=== PATIENT | female | born 1965 | race African-American/Black ===

== ENCOUNTER 2017-09-01 06:15 | Emergency (ER) | payer OTHER ==
[~2017-09-01 06:15] MED LIST: CLON1000 PO; DULO40CA2 PO; FAMO-79 PO; GABA-826 PO; OXYC-307 PO; OXYC5TAB2 PO; PRED20TA PO
[2017-09-01 06:16] VITALS: BP 155/86
[2017-09-01] MEDS ORDERED: KETOROLAC 30 MG/1 ML IM ONE (07:00)
[2017-09-01] MEDS ORDERED: KETOROLAC 30 MG/1 ML ONE (07:30)
== END 2017-09-01 08:27 | disposition home or self-care (01) ==
LOC: ED 07:39
DX: G89.29 Other chronic pain (principal); M25.561 Pain in right knee
CPT/HCPCS: 73564; 93971; 96372; 99284; J1885

== ENCOUNTER 2017-09-19 09:07 | Emergency (ER) | payer OTHER ==
[~2017-09-19] VITALS: Ht 167.6 cm; Wt 72.0 kg
[2017-09-19 09:10] VITALS: BP 136/86
== END 2017-09-19 09:50 | disposition home or self-care (01) ==
LOC: ED 09:38
DX: L53.8 Other specified erythematous conditions (principal)
CPT/HCPCS: 99283

== ENCOUNTER 2017-09-20 03:15 | Emergency (ER) | payer OTHER ==
[~2017-09-20] VITALS: Ht 170.2 cm; Wt 86.0 kg
[2017-09-20 03:16] VITALS: BP 121/80
[2017-09-20] MEDS ORDERED: SULFAMETH./TRIMETHOPRIM DS 800MG/160MG TABLET ONE (04:15)
[2017-09-20] MEDS ORDERED: CEPHALEXIN 500 MG CAPSULE ONE (04:16)
[2017-09-20] MEDS ORDERED: CEPHALEXIN 500 MG CAPSULE PO ONE (04:30)
[2017-09-20] MEDS ORDERED: SULFAMETH./TRIMETHOPRIM DS 800MG/160MG TABLET PO ONE (04:30)
== END 2017-09-20 05:02 | disposition home or self-care (01) ==
LOC: ED 04:17
DX: B02.9 Zoster without complications (principal); L03.312 Cellulitis of back [any part except buttock and flank]; L03.114 Cellulitis of left upper limb
CPT/HCPCS: 93005; 99283

== ENCOUNTER → 2017-11-24 | Outpatient (CLI) | payer OTHER | END | disposition home or self-care (01) | LOC: CFH 07:52 → EDSTATUS 08:00 | PROVIDERS: ATTEND Internal Medicine Cardiovascular Disease | DX: R06.00 Dyspnea, unspecified (principal); R07.9 Chest pain, unspecified; I10 Essential (primary) hypertension; F17.210 Nicotine dependence, cigarettes, uncomplicated | CPT/HCPCS: 93306 ==

== ENCOUNTER 2018-01-30 10:26 | Emergency (ER) | payer OTHER ==
[~2018-01-30] VITALS: Ht 167.6 cm; Wt 79.0 kg
[2018-01-30 10:30] VITALS: BP 148/87
[2018-01-30] MEDS ORDERED: HYDROcodone/APAP 5/325 TABLET PO ONE (11:00)
[2018-01-30] MEDS ORDERED: HYDROcodone/APAP 5/325 TABLET ONE (11:01)
[2018-01-30] MEDS ORDERED: OXYcodone/APAP 10/325MG TABLET PO ONE (11:30)
[2018-01-30] MEDS ORDERED: OXYcodone/APAP 10/325MG TABLET ONE (11:39)
== END 2018-01-30 12:21 | disposition home or self-care (01) ==
LOC: ED 12:02
DX: S52.571A Other intraarticular fracture of lower end of right radius, initial encounter for closed fracture (principal); X50.1XXA Overexertion from prolonged static or awkward postures, initial encounter; Y93.89 Activity, other specified; Y99.8 Other external cause status; Y92.009 Unspecified place in unspecified non-institutional (private) residence as the place of occurrence of the external cause
CPT/HCPCS: 29125; 99283

== ENCOUNTER → 2018-01-31 | Outpatient (CLI) | payer OTHER | END | disposition home or self-care (01) | LOC: RAD 17:28 | PROVIDERS: ATTEND Physician Assistant Surgical | DX: S52.514A Nondisplaced fracture of right radial styloid process, initial encounter for closed fracture (principal); S52.501A Unspecified fracture of the lower end of right radius, initial encounter for closed fracture; X58.XXXA Exposure to other specified factors, initial encounter; Y93.89 Activity, other specified; Y92.89 Other specified places as the place of occurrence of the external cause; Y99.8 Other external cause status ==

== ENCOUNTER 2018-02-26 11:17 | Day surgery (SDC) | payer BC, OTHER ==
[2018-02-23 12:46] VITALS: BP 146/89
[~2018-02-26] VITALS: Ht 167.6 cm; Wt 79.8 kg
[~2018-02-26 11:17] MED LIST changes: +CLON0.1T22 PO; +GABA800T2 PO
[2018-02-26] MEDS ORDERED: OxyconTIN ER 20 MG TAB.ER PO ONE (12:30)
[2018-02-26] MEDS ORDERED: GABAPENTIN 300 MG CAPSULE PO ONE (12:30)
[2018-02-26] MEDS ORDERED: DIAZEPAM 5 MG TABLET PO ONE (12:30)
[2018-02-26] MEDS ORDERED: ONDANSETRON ODT 8 MG PO ONE (12:30)
[2018-02-26] MEDS ORDERED: ACETAMINOPHEN 500 MG TABLET PO ONE (12:30)
[2018-02-26] MEDS ORDERED: LACTATED RINGERS 1,000 ML IV SCH (12:39)
[2018-02-26] MEDS ORDERED: BUPIVACAINE/PF-EPI 0.5% 1:200K ONE (12:49)
[2018-02-26] MEDS ORDERED: BACITRACIN 50,000 UNIT ONE (12:49)
[2018-02-26] MEDS ORDERED: MIDAZOLAM 1 MG/ML, 2ML ONE (13:29)
[2018-02-26] MEDS ORDERED: FENTANYL PF 100 MCG/2ML ONE (13:29)
[2018-02-26] MEDS ORDERED: BALANCED SALT OPHTH IRRIG SOLN 18ML ONE (13:38)
[2018-02-26] MEDS ORDERED: CEFAZOLIN 1,000 MG ONE (13:51)
[2018-02-26] MEDS ORDERED: DEXAMETHASONE 4 MG/ML, 1ML ONE ×3 (13:58→14:30)
[2018-02-26] MEDS ORDERED: HYDROmorphone 2 MG/ML, 1ML IVPush PRN (14:30)
[2018-02-26] MEDS ORDERED: PROPOFOL 10 MG/ML, 20ML ONE (14:30)
[2018-02-26] MEDS ORDERED: MEPERIDINE/PF 25MG/0.5ML IVPush PRN (14:30)
[2018-02-26] MEDS ORDERED: LIDOCAINE-MPF 2% ,5ML ONE (14:30)
[2018-02-26] MEDS ORDERED: OXYcodone 5 MG/5 ML ORAL.SOL UDC PO PRN (14:30)
[2018-02-26] MEDS ORDERED: hydrALAzine 20 MG/ML, 1ML IV PRN (14:30)
[2018-02-26] MEDS ORDERED: LABETALOL 5MG/ML, 20ML IV PRN (14:30)
[2018-02-26] MEDS ORDERED: ONDANSETRON 2MG/ML, 2ML ONE (14:30)
[2018-02-26] MEDS ORDERED: PROMETHAZINE 25 MG/ML, 1ML IV PRN (14:30)
[2018-02-26] MEDS ORDERED: HALOPERIDOL 5 MG/ML IV PRN (14:30)
[2018-02-26] MEDS ORDERED: FENTANYL PF 100 MCG/2ML IV PRN (14:30)
[2018-02-26] MEDS ORDERED: ROPIvacaine/PF 0.5%, 30 ML ONE (14:38)
== END 2018-02-26 18:10 | disposition home or self-care (01) ==
LOC: OUT 11:17
PROVIDERS: ATTEND Orthopaedic Surgery
DX: S52.571A Other intraarticular fracture of lower end of right radius, initial encounter for closed fracture (principal); G56.01 Carpal tunnel syndrome, right upper limb; W19.XXXA Unspecified fall, initial encounter; Y93.89 Activity, other specified; Y92.89 Other specified places as the place of occurrence of the external cause; Y99.8 Other external cause status; D64.9 Anemia, unspecified; I10 Essential (primary) hypertension; F17.210 Nicotine dependence, cigarettes, uncomplicated; G89.29 Other chronic pain; Z91.018 Allergy to other foods
CPT/HCPCS: 25609; 64415; 64721; 73100; C1713; J0690; J1100; J2405; J2704; J2795; J3010; J3490; J7120; Q0162; J2250

== ENCOUNTER → 2018-03-23 | Outpatient (CLI) | payer OTHER ==
[~2018-03-23] MED LIST changes: +REGADENOSON 0.4 MG/5 ML SYRINGE ONE
== END | disposition home or self-care (01) ==
LOC: CFH 08:02
PROVIDERS: ATTEND Internal Medicine Cardiovascular Disease
DX: R07.89 Other chest pain (principal); R55 Syncope and collapse
CPT/HCPCS: 78452; 93017; A9502; J2785

== ENCOUNTER 2018-04-06 22:54 | Emergency (ER) | payer OTHER ==
[~2018-04-06] VITALS: Ht 172.7 cm; Wt 89.6 kg
[~2018-04-06 22:54] MED LIST changes: -GABA800T2 PO; +GABA800T5 PO; -REGADENOSON 0.4 MG/5 ML SYRINGE ONE
--- NOTE | 2018-04-06 23:20 | NUR ---
PT PRESENTS TO ED WITH BILATERAL LEXT EDEMA, 3+ PITTING EDEMA, FAMILY AT BEDSIDE, SIDERAILS UP X2, CALL LIGHT WITHIN REACH.
--- NOTE | 2018-04-06 23:21 | NUR ---
PT TO ULTRASOUND
[2018-04-06 23:27] LABS: BASOPHILS # (AUTO) 0.03 x10^3/uL (0-0.1); BASOPHILS % (AUTO) 1 % (0-1); EOSINOPHILS # (AUTO) 0.22 x10^3/uL (0-0.4); EOSINOPHILS % (AUTO) 4 % (1-7); LYMPHOCYTES # (AUTO) 1.78 x10^3/uL (1-3.4); LYMPHOCYTES % (AUTO) 34 % (22-44); MD NO; MEAN CORPUSCULAR HEMOGLOBIN 27.5 pg (27.0-34.8); MEAN CORPUSCULAR HGB CONC 33.5 g/dL (32.4-35.8); MEAN PLATELET VOLUME 7.6 fL (7.4-10.4); MONOCYTES # (AUTO) 0.53 x10^3/uL (0.2-0.8); MONOCYTES % (AUTO) 10 % (2-9); NEUTROPHILS # (AUTO) 2.68 x10^3/uL (1.8-6.8); NEUTROPHILS % (AUTO) 51 % (42-75); PLATELET COUNT 234 x10^3/uL (130-400); RED CELL DISTRIBUTION WIDTH 16.1 % (9.6-15.2)
[2018-04-06 23:37] LABS: ALANINE AMINOTRANSFERASE 20 U/L (12-78); ALBUMIN 3.2 g/dL (3.4-5.0); ANION GAP 7 mmol/L (5-15); CALCIUM 7.9 mg/dL (8.5-10.1); CHLORIDE 111 mmol/L (98-107); CREATININE 0.92 mg/dL (0.55-1.02)
[2018-04-06 23:42] LABS: ALKALINE PHOSPHATASE 114 U/L (45-117); BILIRUBIN,TOTAL 0.3 mg/dL (0.2-1.0); TOTAL PROTEIN 6.1 g/dL (6.4-8.2); TROPONIN I < 0.015 ng/mL (0.000-0.045)
--- NOTE | 2018-04-07 00:28 | NUR ---
BREAK RN: PT RETURNED FROM IMAGING. MONITORS APPLIED. RA SAT 84-87%, PT DENIES O2 USE OR SLEEP APNEA. 3L APPLIED, O2 94%. PT RESTING ON [place], UPDATED ON POC, WAITING FOR RESULTS.
--- NOTE | 2018-04-07 00:31 | NUR ---
REPORT TO DILCIA STEPHENS.
[2018-04-07 01:17] VITALS: BP 106/50
== END 2018-04-07 01:32 | disposition home or self-care (01) ==
LOC: ED 23:35
DX: R60.0 Localized edema (principal); J44.9 Chronic obstructive pulmonary disease, unspecified; I10 Essential (primary) hypertension; F17.200 Nicotine dependence, unspecified, uncomplicated
CPT/HCPCS: 36415; 71045; 80053; 83880; 84484; 85025; 93970; 99284

== ENCOUNTER 2018-09-27 09:07 | Outpatient (CLI) | payer OTHER | END 2018-09-27 23:59 | disposition home or self-care (01) | LOC: RAD 09:07 | PROVIDERS: ATTEND Nurse Practitioner | DX: S92.124A Nondisplaced fracture of body of right talus, initial encounter for closed fracture (principal); R60.0 Localized edema; X58.XXXA Exposure to other specified factors, initial encounter; Y93.89 Activity, other specified; Y92.89 Other specified places as the place of occurrence of the external cause; Y99.8 Other external cause status ==

== ENCOUNTER 2018-11-19 11:50 | Emergency (ER) | payer OTHER ==
[~2018-11-19] VITALS: Ht 167.6 cm; Wt 86.0 kg
[2018-11-19 12:13] VITALS: BP 125/92
--- NOTE | 2018-11-19 12:31 | NUR ---
PT HERE FOR "BUG BITE" ON POSTERIOR RIGHT THIGH, STATES BIT MONDAY, STATED REDNESS/SWELLING/DRAINAGE YESTERDAY.
--- NOTE | 2018-11-19 12:51 | NUR ---
Patient/Caregiver given discharge instructions and they have confirmed that they understand the instructions. Patient ambulatory with steady gait.
== END 2018-11-19 12:53 | disposition home or self-care (01) ==
LOC: ED 12:47
DX: S70.361A Insect bite (nonvenomous), right thigh, initial encounter (principal); L03.115 Cellulitis of right lower limb; J44.9 Chronic obstructive pulmonary disease, unspecified; I10 Essential (primary) hypertension; F41.1 Generalized anxiety disorder; F32.9 Major depressive disorder, single episode, unspecified; F17.200 Nicotine dependence, unspecified, uncomplicated; W57.XXXA Bitten or stung by nonvenomous insect and other nonvenomous arthropods, initial encounter; Y93.89 Activity, other specified; Y92.89 Other specified places as the place of occurrence of the external cause; Y99.8 Other external cause status
CPT/HCPCS: 99283

== ENCOUNTER 2019-03-14 17:17 | Emergency (ER) | payer OTHER ==
[~2019-03-14] VITALS: Ht 167.6 cm; Wt 79.5 kg
[2019-03-14 17:26] VITALS: BP 120/85
[2019-03-14] MEDS ORDERED: LIDOCAINE 1%, 10ML INFIL ONE ×2 (18:00→19:30)
--- NOTE | 2019-03-14 18:19 | NUR ---
LACERATION ANESTITIZED BY PROVIDER AT 181-TO IRRIGATE SHORTLY
--- NOTE | 2019-03-14 18:51 | NUR ---
PROVIDER SUTURING WOUND
[2019-03-14] MEDS ORDERED: LIDOCAINE-MPF 1%, 5ML ONE (18:59)
--- NOTE | 2019-03-14 19:41 | NUR ---
RADIOLOGY AT BEDSIDE
[2019-03-14] MEDS ORDERED: HYDROcodone/APAP 5/325 TABLET ONE (19:50)
--- NOTE | 2019-03-14 19:53 | NUR ---
MEDICATED PER EMAR FOR LEFT LEG PAIN AT 09/19 MOTHER AT BEDSIDE-TO DRIVE PATIENT HOME
[2019-03-14] MEDS ORDERED: HYDROcodone/APAP 5/325 TABLET PO ONE (20:00)
== END 2019-03-14 20:29 | disposition home or self-care (01) ==
LOC: ED 20:00
DX: S81.812A Laceration without foreign body, left lower leg, initial encounter (principal); G89.11 Acute pain due to trauma; I10 Essential (primary) hypertension; J44.9 Chronic obstructive pulmonary disease, unspecified; Z79.899 Other long term (current) drug therapy; X58.XXXA Exposure to other specified factors, initial encounter; Y93.89 Activity, other specified; Y92.89 Other specified places as the place of occurrence of the external cause; Y99.8 Other external cause status
CPT/HCPCS: 12034; 73590; 99284; J3490; 99283

== ENCOUNTER 2019-05-03 21:50 | Emergency (ER) | payer OTHER ==
[~2019-05-03] VITALS: Ht 167.6 cm; Wt 86.4 kg
--- NOTE | 2019-05-03 22:51 | NUR ---
THIS IS A 53Y F THAT COMES IN TONIGHT FOR SWELLING, PAIN REDNESS AND "OOZING" FROM HER LEFT LOWER LEG. PT STS SHE FELL AND A PLANT STAND WENT INTO HER LEG SOME TIME AGO, PT WAS SEEN AND WOUND CARE DONE AT THE TIME. PT NOW REPORTS ABX SINCE MONDAY. PT WAS TO HAVE AND UNRELATED SURGERY AND WAS DENIED THE SIGNS OF INFECTION IN HER LEG WERE CONCERNING. PT DENIES FEVER CHILLS N/V/D. PT STS SHE HAS BEEN TAKING HER BACTRIM DIRECTED.
[2019-05-03] MEDS ORDERED: OXYcodone/APAP 5/325MG TABLET PO ONE (23:00)
--- NOTE | 2019-05-03 23:02 | NUR ---
PT TO US AT THIS TIME
[2019-05-03 23:14] LABS: BASOPHILS # (AUTO) 0.04 x10^3/uL (0-0.1); BASOPHILS % (AUTO) 1 % (0-1); EOSINOPHILS # (AUTO) 0.04 x10^3/uL (0-0.4); EOSINOPHILS % (AUTO) 1 % (1-7); LYMPHOCYTES # (AUTO) 1.28 x10^3/uL (1-3.4); LYMPHOCYTES % (AUTO) 23 % (22-44); MD NO; MEAN CORPUSCULAR HEMOGLOBIN 28.5 pg (27.0-34.8); MEAN CORPUSCULAR HGB CONC 33.1 g/dL (32.4-35.8); MEAN PLATELET VOLUME 7.6 fL (7.4-10.4); MONOCYTES # (AUTO) 0.44 x10^3/uL (0.2-0.8); MONOCYTES % (AUTO) 8 % (2-9); NEUTROPHILS # (AUTO) 3.81 x10^3/uL (1.8-6.8); NEUTROPHILS % (AUTO) 68 % (42-75); PLATELET COUNT 230 x10^3/uL (130-400); RED BLOOD COUNT 4.65 x10^6/uL (3.82-5.3)
[2019-05-03 23:18] LABS: ANION GAP 6 mmol/L (5-15); CALCIUM 8.2 mg/dL (8.5-10.1); CHLORIDE 108 mmol/L (98-107); CREATININE 0.84 mg/dL (0.55-1.02)
[2019-05-03 23:19] LABS: ALBUMIN 3.1 g/dL (3.4-5.0)
--- NOTE | 2019-05-03 23:27 | NUR ---
PT BACK FROM IMAGING
[2019-05-03] MEDS ORDERED: OXYcodone/APAP 5/325MG TABLET ONE (23:29)
[2019-05-03 23:32] VITALS: BP 117/65
--- NOTE | 2019-05-03 23:33 | NUR ---
PT MEDICATED PER MAR, VSS, NADN
== END 2019-05-04 00:52 | disposition home or self-care (01) ==
LOC: ED 23:43
DX: M25.571 Pain in right ankle and joints of right foot (principal); M79.662 Pain in left lower leg; L03.116 Cellulitis of left lower limb; J44.9 Chronic obstructive pulmonary disease, unspecified; I10 Essential (primary) hypertension; F17.200 Nicotine dependence, unspecified, uncomplicated
CPT/HCPCS: 36415; 80048; 82040; 85025; 99285